=== PATIENT | female | born 2000 | race Caucasian/White ===

== ENCOUNTER 2021-11-29 06:30 | Inpatient (IN) ==
[2021-11-29] MEDS ORDERED: PITOCIN ONE (06:53)
[2021-11-29] MEDS ORDERED: D5 1/2 NS 1,000 mL + PITOCIN 20 UNITS/L IV 20 UNITS/1,000 ML BAG IV ONE (06:54)
[2021-11-29] MEDS ORDERED: D5 LR + PITOCIN 10 UNITS/L 10 UNITS/1,000 ML BAG IV ONE ×2 (06:54→18:00)
[2021-11-29] MEDS ORDERED: BETADINE SOLN ONE (06:54)
[2021-11-29] MEDS ORDERED: D5 1/2 NS 1,000 ML 1,000 ML IV ONE (06:54)
--- NOTE | 2021-11-29 07:20 | DR.OB ---
OB Quick Note - Assessment/Plan Assessment/Plan: L&D 11/29/21 at 7:15am S-No complaint. O-Afebrile,VSS [id number]=[id number] with good LTV, +accel, no decel. CTX=mild uterine irritability CVX=2cm/50%/-1/VTX AROM with clear fluid. IUPC and FSE placed. A-IUP at 38 6/7 weeks for induction PIH P-Begin pitocin induction F/U preeclamptic labs Anticipate
[2021-11-29] MEDS ORDERED: NUBAIN INJ 200 MG VIAL MULTIDOSE IVP PRN (07:27)
[2021-11-29] MEDS ORDERED: PHENERGAN INJ 25 MG IM PRN ×2 (07:27→20:30)
[2021-11-29] MEDS ORDERED: PITOCIN IVP ONE (07:27)
[2021-11-29] MEDS ORDERED: D5 LR + PITOCIN 10 UNITS/L 10 UNITS/1,000 ML BAG IV PRN (07:27)
[2021-11-29] MEDS ORDERED: MORPHINE SULFATE INJ 2 MG INJ IVP PRN (07:27)
[2021-11-29] MEDS ORDERED: D5 1/2 NS 1,000 ML 1,000 ML IV SCH (07:27)
[2021-11-29] MEDS ORDERED: REGLAN INJ 10 MG VIAL IVP PRN (07:27)
[2021-11-29 08:08] LABS: URIC ACID 6.4 mg/dL (2.6-6.0)
--- NOTE | 2021-11-29 12:15 | DR.OB ---
OB Quick Note - Assessment/Plan Assessment/Plan: L&D 11/29/21 at 12:10pm Pitocin=12mu/min. S-No complaint. Mild pain with CTX. O-Afebrile,VSS [id number] with good LTV, +accel, no decel. CTX=q 1 1/2 to 2 min., about 45-65mmHg CVX=4cm/75%/-1 A-IUP at 38 6/7 weeks for induction PIH P-Cont. pitocin induction Anticipate
[2021-11-29] MEDS ORDERED: STADOL INJ ONE ×2 (15:23→20:04)
[2021-11-29] MEDS: STADOL INJ IVP PRN ×2 (15:25→20:23)
--- NOTE | 2021-11-29 17:12 | DR.OB ---
OB Quick Note - Assessment/Plan Assessment/Plan: L&D 11/29/21 at 5:05pm Pitocin=20mu/min. S-No complaint except pain with CTX. O-Afebrile,VSS [id number]=027 with good LTV, +accel, no decel. CTX=q 1 1/2 min., about 45-65mmHg CVX=8cm/90%/0 A-IUP at 38 6/7 weeks for induction PIH P-Cont. pitocin induction Anticipate
[2021-11-29] MEDS ORDERED: XYLOCAINE 1 % (PLAIN) ONE (20:04)
[2021-11-29] MEDS ORDERED: MOTRIN TAB 800 MG PO PRN (20:30)
--- NOTE | 2021-11-29 20:30 | DR.OB ---
OB Quick Note - Assessment/Plan Assessment/Plan: Delivery Note [employer] 11/29/21 at 20:05 Patient complete and pushing. Head delivered over intact perineum. No nuchal cord. Nose and mouth bulb suctioned. Body delivered over intact perineum. Cord clamped x 2 and cut. handed to attendants. Cord sent for gases. Placenta delivered spontaneously / intact / 3 vessel cord. No CVX tears. A small midline second degree tear noted and repaired with 0-vicryl in usual fashion. Viable female infant, VTX/OA, wt=8'6" and 8/9, stable to NBN. Mother stable to RR. ANT=325ze.
[2021-11-29] MEDS: D5 1/2 NS 1,000 ML 1,000 ML with PITOCIN 20 UNITS IV SCH ×2 (21:00)
[2021-11-29] MEDS ORDERED: AMBIEN PO PRN (21:14)
[2021-11-29] MEDS ORDERED: DERMOPLAST PAIN RELIEF SPRAY TOP PRN (21:14)
[2021-11-29] MEDS ORDERED: PREPARATION H OINT RECTAL PRN (21:14)
[2021-11-29] MEDS ORDERED: ADACEL or BOOSTRIX TDaP VACCINE IM ONE (21:14)
[2021-11-29] MEDS ORDERED: MILK OF MAGNESIA PO PRN (21:14)
[2021-11-30 04:46] LABS: HEMATOCRIT 34.3 % (36.0-47.0); HEMOGLOBIN 11.9 g/dL (12.0-16.0)
[2021-11-30] MEDS ORDERED: DEPO-PROVERA CONTRACEPTIVE INJ IM ONE (07:39)
[2021-11-30] MEDS: D5 1/2 NS 1,000 ML 1,000 ML with PITOCIN 20 UNITS IV SCH ×4 (07:49→12:33)
[2021-11-30] MEDS ORDERED: PRENATAL PLUS PO SCH (09:00)
[2021-11-30] MEDS ORDERED: ADACEL or BOOSTRIX TDaP VACCINE IM ONE (09:00)
[2021-11-30 17:42] VITALS: BP 137/82
== END 2021-11-30 21:40 | disposition home or self-care (01) | DRG 807 ==
LOC: LD 06:42 → MED/SURG 21:19
PROVIDERS: ADMIT Specialist; ATTEND Specialist
DX: Z01.818 Encounter for other preprocedural examination; Z01.811 Encounter for preprocedural respiratory examination; O13.3 Gestational [pregnancy-induced] hypertension without significant proteinuria, third trimester; Z01.810 Encounter for preprocedural cardiovascular examination; Z3A.38 38 weeks gestation of pregnancy; Z37.0 Single live birth; O70.1 Second degree perineal laceration during delivery